=== PATIENT | female | born 1950 | race Caucasian/White ===

== ENCOUNTER 2016-10-28 12:48 | Day surgery (SDC) | payer OTHER, MEDICARE ==
[~2016-10-28] VITALS: Ht 167.6 cm; Wt 128.6 kg
[~2016-10-28 12:48] MED LIST: ADVAIR 250/501 DISK IH; ALLOPURINOL100 MG PO; AMLODIPINE BESYL5 MG PO; ASPIRIN81 M2 PO; AZELASTINE137 MCG/0. BOTH NARES; CITALOPRAM HBR40 MG PO; CO Q-10200 MG PO; COLACE100 MG PO; Colace PO; FENOFIBRATE54 M1 PO; FLONASE ALLERG9.9 ML BOTH NARES; GLUCOPHAGE1000 MG PO; JANUVIA100 MG PO; KRILL OIL 1,001 EACH PO; LISINOPRIL-HCT1 EAC3 PO; LO-DOSE ASPIRIN81 M2 PO; LOVENOX40 MG/0.4 SC; METFORMIN HCL750 MG PO; Milk Of Magnesia,MOM PO; NEURONTIN100 MG PO; OCEAN NASAL 0.645 ML BOTH NARES; PERCOCET 5/31 TABLET PO; PRAVACHOL20 MG PO; PROAIR HFA8.5 GM IH; PROVENTIL,2.5 MG/3 M IH; Reglan IV; SINGULAIR10 MG PO; Tylenol Extra Streng PO; ULTRAM50 MG PO; Zestoretic,Prinzide PO; Zestril,Prinivil PO; Zyloprim PO; celeXA PO
[2016-10-28 13:37] LABS: POINT-OF-CARE METER ID UU13113694
[2016-10-28 13:39] VITALS: BP 151/83
[2016-10-28 17:52] LABS: POINT-OF-CARE METER ID UU13113675
[2016-10-28 19:54] VITALS: BP 140/70
[2016-10-29 00:08] VITALS: BP 139/73
[2016-10-29 07:01] LABS: POINT-OF-CARE METER ID UU14188577
[2016-10-29 08:05] VITALS: BP 127/58
[2016-10-29] MEDS ORDERED: PERCOCET 5/31 TABLET PO (08:10)
[2016-10-29] MEDS ORDERED: TIZANIDINE HCL4 MG PO (08:10)
[2016-10-29 11:45] LABS: POINT-OF-CARE METER ID UU14188577
[2016-10-29 12:06] VITALS: BP 137/70
[2016-10-29 16:31] LABS: POINT-OF-CARE METER ID UU14149397
[2016-10-29 17:03] VITALS: BP 135/60
== END 2016-10-29 17:53 | disposition home or self-care (01) ==
LOC: SDC 12:48 → 3EAST 17:57 → 2SOUTH 17:57 → 3EAST 19:33 → SDC 11-02 13:42
PROVIDERS: Neurological Surgery
PROC: 01NB0ZZ Release Lumbar Nerve, Open Approach (ICD-10-PCS; principal; 2016-10-28)
DX: M48.06 Spinal stenosis, lumbar region (principal); M54.16 Radiculopathy, lumbar region; I10 Essential (primary) hypertension; E11.9 Type 2 diabetes mellitus without complications; J45.909 Unspecified asthma, uncomplicated; E78.5 Hyperlipidemia, unspecified; G47.33 Obstructive sleep apnea (adult) (pediatric); E66.01 Morbid (severe) obesity due to excess calories; Z68.42 Body mass index [BMI] 45.0-49.9, adult; Z79.82 Long term (current) use of aspirin; Z88.2 Allergy status to sulfonamides; Z83.3 Family history of diabetes mellitus; Z82.3 Family history of stroke; Z82.49 Family history of ischemic heart disease and other diseases of the circulatory system
CPT/HCPCS: 72020; 76000; 82948; 94010; 94640; 94640 76; 94660; 94760; 94799; 99202; G0378; J0690; J1170; J1815; J2250; J2710; J2930; J3010; J3370; J3480; S0020